=== PATIENT | female | born 1950 | race Caucasian/White ===

== ENCOUNTER → 2016-11-08 | Outpatient (CLI) | payer MEDICARE ==
[~2016-11-08] MED LIST: AMBI10TA PO; ATOR20TA15 PO; AUGM875T PO; CARI350T19 PO; CIPR-9 PO; ESCI20TA PO; GABA100C4 PO; GABA300C3 PO; IOHEXOL 350 MG/ML 10 ML VIAL (for RAD DIAG) IV ONE; LACTCAP7 PO; LISI40TA PO; MAGN500T4 PO; MELO7.5 PO; MELO7.5T4 PO; MOBI7.5T PO; PERC10TA27 PO; PERC5TAB12 PO; TURM450C PO; XANA1TAB2 PO; XANA1TAB6 PO; ZOLP10TA3 PO
--- NOTE | 2016-11-08 17:27 | RADRPT ---
EXAM DATE/TIME: 11/08/2016 16:52 [place] COMPARISON: No previous studies available for comparison. INDICATIONS : Right lower abdomen pain. IV CONTRAST: 96 cc Omnipaque 350 (iohexol) IV ORAL CONTRAST: No oral contrast ingested. RADIATION DOSE: 16.68 CTDIvol (mGy) MEDICAL HISTORY : Renal insufficiency. SURGICAL HISTORY : Hysterectomy. ENCOUNTER: Initial ACUITY: 2 days PAIN SCALE: 7/10 LOCATION: Right lower quadrant TECHNIQUE: Volumetric scanning of the abdomen and pelvis was performed. Using automated exposure control and ad justment of the mA and/or kV according to patient size, radiation dose was kept as low as reasonably achievable to obtain optimal diagnostic quality images. FINDINGS: LOWER LUNGS: The visualized lower lungs are clear. LIVER: Homogeneous density without lesion. There is no dilation of the biliary tree. No calcified gallston es. SPLEEN: Normal size without lesion. Several small accessory splenule's anterior to the spleen measuring up t o 1 cm. PANCREAS: Within normal limits. KIDNEYS: On the right side, there is a 3 mm stone in the junction of the mid to lower and lower pole collectin g system and some decreased attenuation in the parenchyma adjacent to the calcification. This findin g suggests possible pyelonephritis. No evidence of hydronephrosis. The right ureter is normal dimen velvet. On the left side, there is moderate hydronephrosis and hydroureter down to the distal ureter w here there is a 4 mm obstructing calcified stone. ADRENAL GLANDS: Within normal limits. VASCULAR: There is no aortic aneurysm. BOWEL/MESENTERY: No dilated loops of small or large bowel. ABDOMINAL WALL: Within normal limits. RETROPERITONEUM: There is no lymphadenopathy. BLADDER: No wall thickening or mass. REPRODUCTIVE: Hysterectomy. No evidence of free fluid. INGUINAL: There is no lymphadenopathy or hernia. MUSCULOSKELETAL: Within normal limits for patient age. CONCLUSION: 1. 4 mm obstructing stone in the distal left ureter with mild to moderate left hydronephrosis and hyd roureter. 2. Decreased parenchymal blush in the middle of the lower pole of the right kidney and a 2 mm calcifi cation at the junction of the medula and collecting system. The finding suggests possible pyelonephr itis. The findings have been called to Yarelis Pulido. Abelino Couch MD on November 08, 2016 at 17:10 Board Certified Radiologist. This report was verified electronically.
== END ==
LOC: HRAD 15:37
DX: R10.31 Right lower quadrant pain (principal)
CPT/HCPCS: 74177; Q9967

== ENCOUNTER 2016-11-10 13:15 | Emergency (ER) | payer MEDICARE ==
[~2016-11-10] VITALS: Ht 162.6 cm; Wt 93.0 kg
[~2016-11-10 13:15] MED LIST changes: -AMBI10TA PO; -ATOR20TA15 PO; -CIPR-9 PO; -GABA100C4 PO; -IOHEXOL 350 MG/ML 10 ML VIAL (for RAD DIAG) IV ONE; -LISI40TA PO; -MELO7.5T4 PO; -PERC5TAB12 PO; -XANA1TAB2 PO
[2016-11-10 13:18] VITALS: BP 185/90; PULSE 92; RESP 24; TEMP 97.7; O2SAT 97
--- NOTE | 2016-11-10 13:40 | PD ---
HPI . Left-sided lower abdominal pain for several days Chief Complaint: Flank/Kidney Pain Time Seen by Provider: 13:40 Travel History International Travel<30 days: No Contact w/Intl Traveler<30days: No Traveled to known affect area: No History of Present Illness HPI 65-year-old female with history of hypertension and hyperlipidemia here with complaints of left lower quadrant abdominal pain. Patient says that 2 days ago she went to urgent care and was told she had blood in her urine. She was sent for CT scan of the abdomen and pelvis that demonstrated a 4 mm obstructing stone in the distal left ureter with mild to moderate left hydronephrosis and hydroureter. Patient was also told she had pallor nephritis and was given ciprofloxacin. She's been taking her medications and tells me that all of a sudden she started to develop some left lower quadrant pain. She called the urgent care was told to go to the nearest emergency department. She admits to increased urinary frequency and some mild dysuria. She currently denies any nausea, vomiting. She denies any chest pain or shortness of breath. She has no other complaints. [facility] Past Medical History Kidney Stones: Yes Past Surgical History Hysterectomy: Yes Other Surgery: Yes (lithotripsy for kidney stones 02/2015) Social History Alcohol Use: No Tobacco Use: No Substance Use: No Allergies-Medications (Allergen,Severity, Reaction): Coded Allergies: No Known Allergies (Unverified , 06/10/15) Reported Meds & Prescriptions Reported Meds & Active Scripts Active Percocet (Oxycodone-Acetaminophen) 5-325 mg Tab 1 Tab PO Q6H PRN Reported Cipro (Ciprofloxacin HCl) 500 Mg Tab 500 Mg PO BID Atorvastatin (Atorvastatin Calcium) 20 Mg Tab 20 Mg PO HS Escitalopram (Escitalopram Oxalate) 20 Mg Tab 20 Mg PO DAILY Lisinopril 40 Mg Tab 40 Mg PO DAILY Meloxicam 7.5 Mg Tab 7.5 Mg PO DAILY Gabapentin 100 Mg Cap 100 Mg PO TID Xanax (Alprazolam) 1 Mg Tab 1 Mg PO Q8H PRN Ambien (Zolpidem Tartrate) 10 Mg Tab 10 Mg PO HS PRN Review of Systems General / Constitutional: No: Fever Eyes: No: Visual changes HENT: No: Headaches Cardiovascular: No: Chest Pain or Discomfort Respiratory: No: Shortness of Breath Gastrointestinal: Positive: Abdominal Pain (left lower quadrant) Genitourinary: Positive: Frequency, Dysuria Musculoskeletal: No: Pain Skin: No Rash Neurologic: No: Weakness Psychiatric: No: Depression Endocrine: No: Polydipsia Hematologic/Lymphatic: No: Easy Bruising Physical Exam Narrative GENERAL: AAO x 3, Well-nourished, well-developed patient. Appears uncomfortable SKIN: Warm and dry. No visible rashes or bruising. HEAD: Normocephalic and atraumatic. EYES: No scleral icterus. No injection or drainage. EOM intact, PERRLA ENT: No nasal drainage noted. Mucous membranes pink. Airway patent. NECK: Supple, trachea midline. No JVD. CARDIOVASCULAR: Regular rate and rhythm without murmurs, gallops, or rubs. RESPIRATORY: Breath sounds equal bilaterally. No accessory muscle use. No rhonchi or rales. GASTROINTESTINAL: Abdomen soft, tenderness to the left lower quadrant with palpation, no rebound or guarding. EXTREMITIES: No cyanosis or edema. BACK: Nontender without obvious deformity. No CVA tenderness on examination. NEURO: CN II-12 intact, sleeve setter strength normal b/l, UE and LE 5/5, no focal deficits PSYCH: AAO x 3, normal affect. Data Data Last Documented VS Vital Signs Date Time Temp Pulse Resp B/P Pulse Ox O2 Delivery O2 Flow Rate FiO2 11/10/16 13:48 87 18 177/81 97 Room Air 11/10/16 13:18 97.7 Orders Complete Blood Count With Diff (11/10/16 13:50) Comprehensive Metabolic Panel (11/10/16 13:50) Urinalysis - C+S If Indicated (11/10/16 13:50) Iv Access Insert/Monitor (11/10/16 13:50) Morphine Inj (Morphine Inj) (11/10/16 14:00) Labs Laboratory Tests Test 11/10/16 14:15 White Blood Count 10.8 TH/MM3 Red Blood Count 4.50 MIL/MM3 Hemoglobin 13.9 GM/DL Hematocrit 41.9 % Mean Corpuscular Volume 93.1 FL Mean Corpuscular Hemoglobin 31.0 PG Mean Corpuscular Hemoglobin 33.3 % Concent Red Cell Distribution Width 13.5 % Platelet Count 278 TH/MM3 Mean Platelet Volume 7.8 FL Neutrophils (%) (Auto) 56.8 % Lymphocytes (%) (Auto) 30.1 % Monocytes (%) (Auto) 8.9 % Eosinophils (%) (Auto) 3.7 % Basophils (%) (Auto) 0.5 % Neutrophils # (Auto) 6.2 TH/MM3 Lymphocytes # (Auto) 3.3 TH/MM3 Monocytes # (Auto) 1.0 TH/MM3 Eosinophils # (Auto) 0.4 TH/MM3 Basophils # (Auto) 0.1 TH/MM3 CBC Comment DIFF FINAL Differential Comment Urine Color LIGHT-YELLOW Urine Turbidity CLEAR Urine pH 5.0 Urine Specific [place] 1.009 Urine Protein NEG mg/dL Urine Glucose (UA) NEG mg/dL Urine Ketones NEG mg/dL Urine Occult Blood SMALL Urine Nitrite NEG Urine Bilirubin NEG Urine Urobilinogen LESS THAN 2.0 MG/DL Urine Leukocyte Esterase NEG Urine RBC 2 /hpf Urine WBC 1 /hpf Urine Squamous Epithelial 1 /hpf Cells Urine Mucus FEW /lpf Microscopic Urinalysis Comment CULT NOT INDICATED Sodium Level 144 MEQ/L Potassium Level 4.2 MEQ/L Chloride Level 106 MEQ/L Carbon Dioxide Level 28.1 MEQ/L Anion Gap 10 MEQ/L Blood Urea Nitrogen 13 MG/DL Creatinine 0.84 MG/DL Estimat Glomerular Filtration 68 ML/MIN Rate Random Glucose 106 MG/DL Calcium Level 9.8 MG/DL Total Bilirubin 0.3 MG/DL Aspartate Amino Transf 23 U/L (AST/SGOT) Alanine Aminotransferase 30 U/L (ALT/SGPT) Alkaline Phosphatase 172 U/L Total Protein 7.5 GM/DL Albumin 3.6 GM/DL MDM Medical Decision Making Medical Screen Exam Complete: Yes Emergency Medical Condition: Yes Medical Record Reviewed: Yes Differential Diagnosis Nephrolithiasis, pyelonephritis, urinary tract infection, constipation, Narrative Course 65-year-old female here with complaints of left lower quadrant pain. Patient did have a recent CT scan rapid and pelvis that demonstrated 4 mm calculus causing some hydronephrosis and hydroureter. Her pain is likely a consequence of this. I provided her some morphine here in the emergency department for pain relief. We are checking some labs. Labs reviewed and there is a slight elevation of Alk Phos. Urine is clear and no abn on CBC. She will need to follow-up with her primary care provider or urologist. Dr. Hernandez discussed the results with the patient. Patient was given a dose of percocet prior to leaving. Patient verbalized understanding of instructions, questions were answered, and thanked me for their care. I advised them if their condition worsens, please return to the nearest emergency room for further care. Diagnosis Primary Impression: Nephrolithiasis Referrals: Urologist Patient Instructions: General Instructions Additional Instructions: Please return to emergency department if your symptoms return or worsen. Follow up with your primary care provider. Take medications as prescribed. Scripts Oxycodone-Acetaminophen (Percocet)5-325 mg Tab1 Tab PO Q6H PRN (PAIN) #15 TAB Ref 0 Prov:Ciera Hernandez MD 11/10/16 Disposition: DISCHARGE HOME Condition: Stable Charlotte Carrillo Nov 10, 2016 13:40
[2016-11-10 13:48] VITALS: BP 177/81; PULSE 87; RESP 18; O2SAT 97
[2016-11-10] MEDS ORDERED: ATOR20TA15 PO (13:59)
[2016-11-10] MEDS ORDERED: XANA1TAB2 PO (13:59)
[2016-11-10] MEDS ORDERED: LISI40TA PO (13:59)
[2016-11-10] MEDS ORDERED: MELO7.5T4 PO (13:59)
[2016-11-10] MEDS ORDERED: GABA100C4 PO (13:59)
[2016-11-10] MEDS ORDERED: ESCI20TA PO (13:59)
[2016-11-10] MEDS ORDERED: AMBI10TA PO (13:59)
[2016-11-10] MEDS ORDERED: MORPHINE SULFATE 4 MG/ML INJ IV PUSH ONE (14:00)
[2016-11-10] MEDS ORDERED: CIPR-9 PO (14:17)
[2016-11-10 14:36] LABS: AUTOMATED NEUTROPHIL # 6.2 TH/MM3 (1.8-7.7); BASOPHIL # 0.1 TH/MM3 (0-0.2); BASOPHIL % 0.5 % (0.0-2.0); EOSINOPHIL # 0.4 TH/MM3 (0-0.4); EOSINOPHIL % 3.7 % (0.0-4.0); HEMATOCRIT 41.9 % (35.0-46.0); HEMO FLAGS DIFF FINAL; LYMPH % 30.1 % (9.0-44.0); LYMPHOCYTE # 3.3 TH/MM3 (1.0-4.8); MEAN CELL VOLUME 93.1 FL (80.0-100.0); MEAN CORPUSCULAR HGB CONC 33.3 % (32.0-36.0); MONO % 8.9 % (0.0-8.0); NEUT % 56.8 % (16.0-70.0); PLATELET COUNT 278 TH/MM3 (150-450); RED CELL DISTRIBUTION WIDTH 13.5 % (11.6-17.2); WHITE BLOOD COUNT 10.8 TH/MM3 (4.0-11.0)
[2016-11-10 14:40] LABS: BLOOD, URINE SMALL (NEG); COMMENT (UR) CULT NOT INDICATED; CULTURE IF INDICATED CULT NOT INDICATED; GLUCOSE,URINE NEG (NEG); KETONE, URINE NEG (NEG); MUCUS URINE FEW /lpf (OCC); NITRITE,URINE NEG (NEG); SQUAMOUS EPITHELIAL CELL URINE 1 /hpf (0-5); URINE COLOR LIGHT-YELLOW (YELLW/STRAW)
[2016-11-10 14:58] LABS: ANION GAP 10 MEQ/L (5-15); BICARBONATE 28.1 MEQ/L (21.0-32.0); BLOOD UREA NITROGEN 13 MG/DL (7-18); CHLORIDE 106 MEQ/L (98-107); GLOMERULAR FILTRATION RATE 68 ML/MIN (>89); POTASSIUM 4.2 MEQ/L (3.5-5.1); SODIUM (NA) 144 MEQ/L (136-145)
[2016-11-10 14:59] LABS: ALT (GPT) 30 U/L (10-53); AST (GOT) 23 U/L (15-37)
[2016-11-10 15:01] LABS: ALKALINE PHOSPHATASE 172 U/L (45-117); TOTAL BILIRUBIN ADULT 0.3 MG/DL (0.2-1.0)
[2016-11-10] MEDS ORDERED: PERC5TAB12 PO (15:05)
--- NOTE | 2016-11-10 15:13 | PD ---
Data Data Last Documented VS Vital Signs Date Time Temp Pulse Resp B/P Pulse Ox O2 Delivery O2 Flow Rate FiO2 11/10/16 13:48 87 18 177/81 97 Room Air 11/10/16 13:18 97.7 Orders Complete Blood Count With Diff (11/10/16 13:50) Comprehensive Metabolic Panel (11/10/16 13:50) Urinalysis - C+S If Indicated (11/10/16 13:50) Iv Access Insert/Monitor (11/10/16 13:50) Morphine Inj (Morphine Inj) (11/10/16 14:00) Labs Laboratory Tests Test 11/10/16 14:15 White Blood Count 10.8 TH/MM3 Red Blood Count 4.50 MIL/MM3 Hemoglobin 13.9 GM/DL Hematocrit 41.9 % Mean Corpuscular Volume 93.1 FL Mean Corpuscular Hemoglobin 31.0 PG Mean Corpuscular Hemoglobin 33.3 % Concent Red Cell Distribution Width 13.5 % Platelet Count 278 TH/MM3 Mean Platelet Volume 7.8 FL Neutrophils (%) (Auto) 56.8 % Lymphocytes (%) (Auto) 30.1 % Monocytes (%) (Auto) 8.9 % Eosinophils (%) (Auto) 3.7 % Basophils (%) (Auto) 0.5 % Neutrophils # (Auto) 6.2 TH/MM3 Lymphocytes # (Auto) 3.3 TH/MM3 Monocytes # (Auto) 1.0 TH/MM3 Eosinophils # (Auto) 0.4 TH/MM3 Basophils # (Auto) 0.1 TH/MM3 CBC Comment DIFF FINAL Differential Comment Urine Color LIGHT-YELLOW Urine Turbidity CLEAR Urine pH 5.0 Urine Specific [place] 1.009 Urine Protein NEG mg/dL Urine Glucose (UA) NEG mg/dL Urine Ketones NEG mg/dL Urine Occult Blood SMALL Urine Nitrite NEG Urine Bilirubin NEG Urine Urobilinogen LESS THAN 2.0 MG/DL Urine Leukocyte Esterase NEG Urine RBC 2 /hpf Urine WBC 1 /hpf Urine Squamous Epithelial 1 /hpf Cells Urine Mucus FEW /lpf Microscopic Urinalysis Comment CULT NOT INDICATED Sodium Level 144 MEQ/L Potassium Level 4.2 MEQ/L Chloride Level 106 MEQ/L Carbon Dioxide Level 28.1 MEQ/L Anion Gap 10 MEQ/L Blood Urea Nitrogen 13 MG/DL Creatinine 0.84 MG/DL Estimat Glomerular Filtration 68 ML/MIN Rate Random Glucose 106 MG/DL Calcium Level 9.8 MG/DL Total Bilirubin 0.3 MG/DL Aspartate Amino Transf 23 U/L (AST/SGOT) Alanine Aminotransferase 30 U/L (ALT/SGPT) Alkaline Phosphatase 172 U/L Total Protein 7.5 GM/DL Albumin 3.6 GM/DL MDM Supervised Visit with ENA: Yes Differential Diagnosis I, Dr. Hernandez, have reviewed the advance practice practioner's documentation and am in agreement, met with the patient face to face, made the diagnosis, and the medical decision making was done by me. *My assessment and Findings: 65-year-old female here with left flank pain. She had a CT abdomen and pelvis yesterday with a 4 mm stone in the distal ureter with mild hydronephrosis and hydroureter. Patient was started on antibiotics for possible pyelonephritis. She states that the pain is somewhat increased. Abdomen is benign but she does have some left sided flank pain. Differential includes ureterolithiasis, obstructive uropathy, UTI/pyelonephritis. Laboratory workup unremarkable. Patient felt improved after symptomatic management and discharged home. Diagnosis Primary Impression: Ureterolithiasis Referrals: Urologist Patient Instructions: General Instructions Additional Instruction: Please return to emergency department if your symptoms return or worsen. Follow up with your primary care provider. Take medications as prescribed. Med/Other Pt SpecificInfo: Prescription(s) given Scripts Oxycodone-Acetaminophen (Percocet)5-325 mg Tab1 Tab PO Q6H PRN (PAIN) #15 TAB Ref 0 Prov:Ciera Hernandez MD 11/10/16 Disposition: 01 DISCHARGE HOME Condition: Stable Ciera Hernandez MD Nov 10, 2016 15:13
[2016-11-10] MEDS ORDERED: oxyCODONE/ACETAMINOPHEN 5 MG/325 MG TAB PO ONE (15:15)
== END 2016-11-10 15:26 | disposition home or self-care (01) ==
LOC: NEPD 13:15
DX: N20.0 Calculus of kidney (principal); N13.2 Hydronephrosis with renal and ureteral calculous obstruction; I10 Essential (primary) hypertension; E78.5 Hyperlipidemia, unspecified
CPT/HCPCS: 80053; 81001; 85025; 96374; 99284; J2270